=== PATIENT | male | born 1995 | race Caucasian/White ===

== ENCOUNTER 2023-05-08 16:19 | Emergency (ER) | payer OTHER, SELFPAY ==
[2023-05-08 16:23] VITALS: BP 140/105; BMI 24.4
--- NOTE | 2023-05-08 16:50 | ED.GENMED ---
History of Present Illness
General
Chief Complaint: Skin Surface Trauma
Source: patient
Exam Limitations: none
Time Seen by Provider: 05/08/23 16:36
Nursing documentation reviewed up to this point in time: agreed with
Travel History
Have you had any contact with someone who has COVID-19?: No
Do you have any symptoms of coronavirus? Fever > 100 degrees, chills, cough, shortness of breath, sore throat, loss of taste or smell, muscle aches, or headache?: No
History of Present Illness
History of Present Illness:
pt is a 27 y/o M right hand dominant
here with left hand laceration base of L thumb when he was chopping wood at his house today. pt is very anxious about the site of blood
last tetanus > 10 years ago
has no sensory or motor deficit
pain ctonrolled
no active bleeding
Past History
Past History
ED Past Medical History: None
ED Past Surgical History: None
Social History
Tobacco: Non-smoker
Alcohol: None
Drug: None
Employment: Employed
Review of Systems
Review of Systems
Allergies reviewed?: Yes
All Other Systems: Not applicable
Phy Exam
Physical Exam
Physical Exam:
GENERAL: Alert , in no apparent distress, comfortable at rest
HEAD: NCAT
CV: cap refill L thumb intact
normal radial pulse
NEUROLOGICAL: Alert and oriented, no focal neuro deficits, , 5/5 strength, sensation intact to thumb
SKIN: Warm and dry,
MUSCULOSKELETAL: pt has an irregularly shaped laceration approx 3 cm long at the base of the L thumb
PSYCH: Normal and appropriate interaction.
Course
Orders/Labs/Results
Orders:
Orders
05/08/23 16:48
Tetanus/Diphth/Acelpertussis [Adacel] 0.5 ml IM .ONCE ONE
CR Hand - Left Min 3 Views Urgent
Comment:
Reason For Exam: left thumb laceration
Vital Signs
Initial and Last Documented VS:
Initial Vital Signs
Temp Pulse Resp BP Pulse Ox
98 F 118 16 140/105 99
05/08/23 16:23 05/08/23 16:23 05/08/23 16:23 05/08/23 16:23 05/08/23 16:23
Last Documented Vital Signs
Temp Pulse Resp BP Pulse Ox
98 F 118 16 140/105 99
05/08/23 16:23 05/08/23 16:23 05/08/23 16:23 05/08/23 16:23 05/08/23 16:23
Procedures
Laceration Closure
Left Lower Finger(s):
Status of Wound: clean
Description of Wound Edges: ragged and flap-well vascularized
Preparation: cleaned with saline
Anesthesia: 1% Lidocaine
Revision/Debridement: minor revision
Wound exploration: explored to base- no FB
Type of Closure: layered closure
Skin Closure Material: 5-0 nylon (5) and 5-0 vicryl (1)
Number of sutures: 6
MDM/Problems Addressed
Differential Diagnosis Includes:
laceration, bony fracture
MDM/Problems Addressed:
27 y/o M righ thand dominant
here with left thumb laceration from an axe when he was chopping wood
nv intact
no sensory deficit
bleeding controlled
laceration well approximated with 2 layer closure
bacitracin dressing applied
xray indep reviewed by me no fx
d/c home
teatnus updated
bp improved, pt was very anxious
*Critical Care Note
Total Time (30-74mins, 75-104mins- exclusive of procedures): Not Applicable
ED Attending Note
-
Portions of this chart may have been created with voice recognition software.� Occasional wrong word or��sound alike� substitutions may have occurred due to the inherent limitations of voice recognition software.
Discharge Plan
Departure
Patient Disposition: Home (Routine Discharge)
Date of Disposition: 05/08/23
Time of Disposition: 18:04
Patient with high blood pressure during this ER visit?: No
Condition: Fair
Covid-19: Not Applicable
Discharge Problem:
Laceration of thumb
Instructions: Laceration Repair With Stitches (DC)
Referrals:
UNKNOWN - PT DOES,NOT KNOW [Family Provider] -
Activity Restrictions/Additional Instructions:
KEEP THE WOUND CLEAN AND DRY FOR 24 HOURS
AFTER THAT YOU CAN GET IT WET IN THE BATH/SHOWER ONCE A DAY AND MAKE SURE IT IS CLEAN AND THERE IS NO DRIED BLOOD ON THE STITCHES
APPLY NEOSPORIN AND A BANDAID
THE STITCHES NEED TO BE REMOVED IN ABOUT 7-10 (probably closer to 10 days is better) DAYS, SEE YOUR DOCTOR FOR THIS.
THE LAST DAY BEFORE STITCHES OUT, NO OINTMENT, LEAVE OPEN TO AIR
WATCH FOR SIGNS OF INFECTION AND RETURN NEEDED FOR PAIN, SWELLING, REDNESS, DRAINAGE, BLEEDING.
MOTRIN NEEDED FOR PAIN.
Interventions
Interventions:
*Risk Screen - Suicide Last Done: 05/08/23 16:23
*General Assessment Last Done: 05/08/23 16:41
*Neglect/Abuse Screening Last Done: 05/08/23 16:23
ED- Fall Risk Assessment Last Done: 05/08/23 17:37
*ED COVID-19 Vaccine History Last Done: 05/08/23 16:23
ED-Skin Assessment Last Done: 05/08/23 17:37
[2023-05-08] MEDS: ADACEL 0.5 ML IM (17:12)
[2023-05-08 18:08] VITALS: BP 117/87
== END 2023-05-08 18:09 | disposition home or self-care (01) ==
LOC: EMR 16:19
PROVIDERS: EMERGENCY PHYSICIAN Emergency Medicine
DX: S61.012A Laceration without foreign body of left thumb without damage to nail, initial encounter (principal); W45.8XXA Other foreign body or object entering through skin, initial encounter; Z23 Encounter for immunization
CPT/HCPCS: 99282; 12001; 90471; 73130; 90715